=== PATIENT | male | born 1980 | race American Indian/Alaskan Native ===

== ENCOUNTER 2020-10-21 13:17 | Emergency (ER) | payer SELFPAY ==
[2020-10-21] MEDS ORDERED: COLCHICINE 0.6 MG TAB PO ONE ×2 (14:21→18:00)
[2020-10-21] MEDS ORDERED: oxyCODONE /ACETAMINOPHEN 5-325MG TAB PO ONE (14:21)
[2020-10-21] MEDS ORDERED: KETOROLAC 30 MG/1 ML INJ IV ONE (14:21)
[2020-10-21 14:40] LABS: Basophils # (Auto) 0.1 K/mm3 (0.0-0.1); Basophils % (Auto) 0.7 % (0.0-1.8); Eosinophils # (Auto) 0.1 K/mm3 (0.0-0.4); Hematocrit 37.8 % (35.5-45.6); Hemoglobin 12.5 gm/dl (11.8-15.2); Lymphocytes # (Auto) 1.3 K/mm3 (1.2-5.4); Lymphocytes % (Auto) 13.6 % (13.4-35.0); Mean Corpuscular HGB Conc 33 % (32-34); Mean Corpuscular Volume 84 fl (84-94); Monocytes % (Auto) 10.4 % (0.0-7.3); Platelet Count 260 K/mm3 (140-440); Red Blood Count 4.52 M/mm3 (3.65-5.03); Red Cell Distribution Width 15.4 % (13.2-15.2)
[2020-10-21 15:10] LABS: Alanine Aminotransferase 12 units/L (7-56); Albumin 3.2 g/dL (3.9-5); BUN/Creatinine Ratio 16; Blood Urea Nitrogen 13 mg/dL (9-20); Calcium 8.8 mg/dL (8.4-10.2); Hemolysis Index 0
--- NOTE | 2020-10-21 15:27 | Emergency Department Report ---
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 Pain having pain at bilateral feet and left knee that is throbbing, severe, worse with palpation and movement. Patient states for the last week is been pretty much bedbound and unable to ambulate secondary to pain. In the past he was prescribed Uloric for gout but is not currently taking any doses. Patient denies chest pain, shortness of breath, history of PE/DVT, or hypertension. Patient states he was last seen by a doctor in [place] 3 months ago and his pressure was normal. No complaints of trauma or fever. Patient taken ibuprofen only for intermittent pain relief. No meds taken today Severity scale (0 -10): 10 - Related Data Home Medications Medication Instructions Recorded Confirmed Last Taken Febuxostat [Uloric] 40 mg PO QDAY 10/21/20 10/21/20 Unknown Previous Rx's Medication Instructions Recorded Last Taken Type Colchicine [Colcrys] 0.6 mg PO ONCE #3 tablet 10/21/20 Unknown Rx Ibuprofen [Motrin] 800 mg PO Q8HR PRN #20 tablet 10/21/20 Unknown Rx oxyCODONE /ACETAMINOPHEN [Percocet 1 tab PO Q4HR PRN #20 tab 10/21/20 Unknown Rx 5/325] Allergies Allergy/AdvReac Type Severity Reaction Status Date / Time No Known Allergies Allergy Verified 10/21/20 13:54 ED Review of Systems ROS: Stated complaint: GOUT Other details as noted in HPI Comment: All other systems reviewed and negative ED Past Medical Hx - Medications Home Medications: Home Medications Medication Instructions Recorded Confirmed Last Taken Type Colchicine [Colcrys] 0.6 mg PO ONCE #3 tablet 10/21/20 Unknown Rx Febuxostat [Uloric] 40 mg PO QDAY 10/21/20 10/21/20 Unknown History Ibuprofen [Motrin] 800 mg PO Q8HR PRN #20 tablet 10/21/20 Unknown Rx oxyCODONE /ACETAMINOPHEN [Percocet 1 tab PO Q4HR PRN #20 tab 10/21/20 Unknown Rx 5/325] ED Physical Exam - General Limitations: Physical Limitation - Other Other exam information: General: No acute distress Head: Atraumatic Eyes: normal appearance ENT: Moist mucous membranes Neck: Normal appearance, no midline tenderness Chest: Clear to auscultation bilaterally CV: Regular rate and rhythm Abdomen: Soft, normal bowel sounds, nontender, nondistended, no rebound or guarding Back: Normal inspection Extremity: Mild swelling to bilateral feet and left knee. Right foot tenderness greatest at the first MTP joint and extends to the dorsum of the foot and lateral ankle. Mild tenderness to left foot. Anterior left knee tenderness with warmth without erythema. Limited movement of affected extremity secondary to pain however, patient states pain is less than it has been the last several Neuro: Alert O x 3, no facial asymmetry, speech clear, no gross motor sensory deficit Psych: Appropriate behavior Skin: No rash ED Course Vital Signs 10/21/20 10/21/20 10/21/20 14:02 14:35 14:36 Temperature 99.3 F Pulse Rate 105 H Respiratory 18 18 18 Rate Blood Pressure 172/103 [Right] O2 Sat by Pulse 99 Oximetry 10/21/20 10/21/20 10/21/20 15:06 15:35 17:11 Temperature Pulse Rate 86 Respiratory 18 18 18 Rate Blood Pressure 147/94 [Right] O2 Sat by Pulse 99 Oximetry ED Medical Decision Making - Lab Data Result diagrams: 10/21/20 14:30 10/21/20 14:30 Lab Results 10/21/20 10/21/20 Range/Units 14:30 14:30 WBC 9.6 (4.5-11.0) K/mm3 RBC 4.52 (3.65-5.03) M/mm3 Hgb 12.5 (11.8-15.2) gm/dl Hct 37.8 (35.5-45.6) % MCV 84 (84-94) fl MCH 28 (28-32) pg MCHC 33 (32-34) % RDW 15.4 H (13.2-15.2) % Plt Count 260 (140-440) K/mm3 Lymph % (Auto) 13.6 (13.4-35.0) % [place] % (Auto) 10.4 H (0.0-7.3) % Eos % (Auto) 1.0 (0.0-4.3) % Baso % (Auto) 0.7 (0.0-1.8) % Lymph # (Auto) 1.3 (1.2-5.4) K/mm3 [place] # (Auto) 1.0 H (0.0-0.8) K/mm3 Eos # (Auto) 0.1 (0.0-0.4) K/mm3 Baso # (Auto) 0.1 (0.0-0.1) K/mm3 Seg Neutrophils % 74.3 H (40.0-70.0) % Seg Neutrophils # 7.2 (1.8-7.7) K/mm3 Sodium 141 (137-145) mmol/L Potassium 3.8 (3.6-5.0) mmol/L Chloride 104.8 (98-107) mmol/L Carbon Dioxide 29 (22-30) mmol/L Anion Gap 11 mmol/L BUN 13 (9-20) mg/dL Creatinine 0.8 (0.8-1.3) mg/dL Estimated GFR > 60 ml/min BUN/Creatinine Ratio 16 % Glucose 115 H (75-100) mg/dL Calcium 8.8 (8.4-10.2) mg/dL Total Bilirubin 0.60 (0.1-1.2) mg/dL AST 18 (5-40) units/L ALT 12 (7-56) units/L Alkaline Phosphatase 74 (35-129) units/L NT-Pro-B Natriuret Pep 352.2 (0-450) pg/mL Total Protein 7.9 (6.3-8.2) g/dL Albumin 3.2 L (3.9-5) g/dL Albumin/Globulin Ratio 0.7 % - Radiology Data Radiology results: report reviewed DUPLEX DOPPLER LOWER EXTREMITY VEINS, BILATERAL INDICATION / CLINICAL INFORMATION: b/l lower extermity swelling. TECHNIQUE: Duplex doppler imaging was performed through the veins of both lower extremities using venous compression and other maneuvers. COMPARISON: None available. FINDINGS: RIGHT COMMON FEMORAL VEIN: Negative. RIGHT FEMORAL VEIN: Negative. RIGHT POPLITEAL VEIN: Negative. RIGHT CALF VEINS: Negative. LEFT COMMON FEMORAL VEIN: Negative. LEFT FEMORAL VEIN: Negative. LEFT POPLITEAL VEIN: Negative. LEFT CALF VEINS: The peroneal vein is not identified. No DVT seen along the posterior tibial vein. ADDITIONAL FINDINGS: A left Young cyst measures up to 3.3 cm. IMPRESSION: 1. No sonographic evidence for DVT in either lower extremity. 2. Left Young's cyst. Critical care attestation.: If time is entered above; I have spent that time in minutes in the direct care of this critically ill patient, excluding procedure time. ED Disposition Clinical Impression: Gout flare, Elevated blood pressure reading, Synovial cyst of popliteal space [Young], left knee Disposition: - TO HOME OR SELFCARE Is pt being admited?: No Does the pt Need Aspirin: No Condition: Stable Instructions: Young Cyst, Calcium Pyrophosphate Deposition, Preventing Hypertension Additional Instructions: Take the medication as prescribed. Follow-up with your doctor or doctor/clinic provided. Return if symptoms worsen as indicated by your discharge instructions. Your blood pressure was elevated here in the ER but improved with pain management. Follow-up with your primary care doctor Provided for repeat blood pressure check to determine if medication is needed. Prescriptions: Colchicine [Colcrys] 0.6 mg PO ONCE #3 tablet Ibuprofen [Motrin] 800 mg PO Q8HR PRN #20 tablet PRN Reason: Pain , Severe (7-10) oxyCODONE /ACETAMINOPHEN [Percocet 5/325] 1 tab PO Q4HR PRN #20 tab PRN Reason: Pain , Severe (7-10) Referrals: JEY WALTERS MD [Primary Care Provider] - 3-5 Days [facility] [Provider Group] - 3-5 Days GUDELIA BURNHAM MD [Staff Physician] - 3-5 Days
--- NOTE | 2020-10-21 16:48 | Vascular Lab Report ---
DUPLEX DOPPLER LOWER EXTREMITY VEINS, BILATERAL INDICATION / CLINICAL INFORMATION: b/l lower extermity swelling. TECHNIQUE: Duplex doppler imaging was performed through the veins of both lower extremities using venous virgen mayte and other maneuvers. COMPARISON: None available. FINDINGS: RIGHT COMMON FEMORAL VEIN: Negative. RIGHT FEMORAL VEIN: Negative. RIGHT POPLITEAL VEIN: Negative. RIGHT CALF VEINS: Negative. LEFT COMMON FEMORAL VEIN: Negative. LEFT FEMORAL VEIN: Negative. LEFT POPLITEAL VEIN: Negative. LEFT CALF VEINS: The peroneal vein is not identified. No DVT seen along the posterior tibial vein. ADDITIONAL FINDINGS: A left Young cyst measures up to 3.3 cm. IMPRESSION: 1. No sonographic evidence for DVT in either lower extremity. 2. Left Young's cyst. Signer Name: Kumar Boswell MD Signed: 10/21/2020 4:44 PM Workstation Name: [id number]
[2020-10-21 17:14] VITALS: BP 147/94
[2020-10-21] MEDS ORDERED: HYDROmorphone 1 MG/1 ML INJ IV ONE ×2 (17:55→17:56)
[2020-10-21] MEDS ORDERED: dexAMETHasone 20 MG in SODIUM CHLORIDE 0.9% 50 ML IV ONE (18:30)
== END 2020-10-21 18:45 | disposition home or self-care (01) ==
LOC: ED 13:17
DX: M71.22 Synovial cyst of popliteal space [Baker], left knee (principal); M10.9 Gout, unspecified; R03.0 Elevated blood-pressure reading, without diagnosis of hypertension; Z79.899 Other long term (current) drug therapy
CPT/HCPCS: 36415; 80053; 83880; 85025; 93970; 96374; 96375; 99284; J1100; J1170; J1885